=== PATIENT | female | born 1970 | race Caucasian/White ===

== ENCOUNTER 2023-04-23 08:11 | Outpatient (OUT) | payer BC, SELFPAY ==
[2023-04-23 08:49] LABS: Basophils Absolute Auto 0.1 10^3/uL (0.0-0.1); Basophils Percent Auto 0.7 % (0.2-2.0); Eosinophils Absolute Auto 0.1 10^3/uL (0.0-0.7); Eosinophils Percent Auto 0.9 % (0.9-7.0); Hematocrit 41.9 % (36.0-48.0); Hemoglobin 13.3 g/dL (12.0-16.0); Immature Granulocytes Abs Auto 0.01 10^3/uL (0.00-0.03); Immature Granulocytes Pct Auto 0.1 % (0.0-0.5); Lymphocytes Absolute Auto 2.2 10^3/uL (1.2-3.8); Mean Corpuscular HGB Conc 31.7 g/dL (29.9-35.2); Mean Corpuscular Hemoglobin 28.2 pg (26.7-34.0); Mean Corpuscular Volume 88.8 fL (81.0-99.0); Mean Platelet Volume 9.5 fL (9.5-13.5); Monocytes Absolute Auto 0.6 10^3/uL (0.3-0.8); Monocytes Percent Auto 8.3 % (1.7-12.0); Platelet Count 307 10^3/uL (150-450); Red Blood Count 4.72 10^6/uL (4.20-5.40); Red Cell Distribution Width 12.4 % (11.0-15.0); White Blood Count 6.9 10^3/uL (4.0-11.0)
[2023-04-23 09:22] LABS: Estimated Average Glucose 117 mg/dL; Glycohemoglobin A1C 5.7 % (4.5-6.2)
[2023-04-23 09:37] LABS: Alanine Aminotransferase 25 U/L (14-59); Albumin Globulin Ratio 0.8; Albumin Level 3.2 g/dL (3.4-5.0); Alkaline Phosphatase 98 U/L (46-116); Aspartate Amino Transferase 14 U/L (15-37); BUN Creatinine Ratio 12.7; Bilirubin Total 0.4 mg/dL (0.2-1.0); Calcium 8.9 mg/dL (8.5-10.1); Carbon Dioxide 28.1 mmol/L (21.0-32.0); Chloride 104 mmol/L (98-107); Chol HDL Ratio 1.9; Cholesterol 162 mg/dL (<=200); Estimated GFR (African America >60 (>=60); Estimated GFR (Non-African Ame >60 (>=60); Free T3 2.43 pg/mL (2.18-3.98); Globulin 4.1 g/dL; Glucose 109 mg/dL (74-106); HDL Cholesterol 85 mg/dL (40-60); Potassium 4.1 mmol/L (3.5-5.1); Sodium 140 mmol/L (136-145); Thyroid Stimulating Hormone 2.057 uIU/mL (0.358-3.740); Total Protein 7.3 g/dL (6.4-8.2); Triglycerides 62 mg/dL (<=150); VLDL CHOLESTEROL 12.4 mg/dL
[2023-04-24 11:09] LABS: Insulin 9.5 uIU/mL (2.6-24.9)
== END 2023-04-23 08:12 | disposition home or self-care (01) ==
PROVIDERS: PCP Nurse Practitioner Family; Visit Provider Nurse Practitioner Family
DX: Z00.00 Encounter for general adult medical examination without abnormal findings (principal)
CPT/HCPCS: 36415; 80053; 80061; 82306; 83036; 83525; 83540; 84436; 84443; 84481; 85025

== ENCOUNTER 2023-05-06 07:37 | Outpatient (OUT) | payer BC, SELFPAY ==
--- NOTE | 2023-05-06 08:12 | CA_ITS ---
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: : 1970 Requested By: [id number] Order Number: [id number] Reading MD: RYAN LEACH Interpretive Statements Predominant rhythm is sinus with average rate of 82 bpm Tachycardia - max rate of 126 bpm - longest episode of 26min 6sec with rates between 116-126 bpm Bradycardia - min rate of 49 bpm - longest episode of 42sec with rates between 49-57 bpm Ventricular ectopy - 68 PVC Patient triggered events: 3 - associated with symptoms of dizziness and palpitations - associated wth NSR Impression: Predominant rhythm is sinus with average rate of 82 bpm Fastest rate of 126 bpm and slowest rate of 49 bpm 68 PVC No atrial fibrillation No pauses or blocks Electronically Signed On 05-29-2023 7:25:01 EST by RYAN LEACH
== END 2023-05-06 07:38 | disposition home or self-care (01) ==
LOC: CARD 07:38
PROVIDERS: PCP Nurse Practitioner Family; Visit Provider Nurse Practitioner Family
DX: R00.2 Palpitations (principal)
CPT/HCPCS: 93246

== ENCOUNTER 2024-04-23 08:17 | Outpatient (OUT) | payer BC, SELFPAY ==
--- OUTSIDE RECORDS SUMMARY | 2024-04-23 08:22 | XMS_ITS | CCD ---
Author Organization [facility] CliniSyak Care Team Providers Care Operator Specialist Communications Name Role Phone CARL RODRÍGUEZ Unavailable Unavailable HOUSE, SR ISAURO P Unavailable Unavailable ANNE, CARL Khan Unavailable Unavailable HOUSE, SR ISAURO P Unavailable Unavailable HIGHLANDER, ANTONIA Ackerman Consulting Unavailable HOUSE, DR BOX Primary Care Unavailable HIGHLANDER, ANTONIA Ackerman Attending Unavailable HIGHLANDER, ANTONIA cAkerman Admitting Unavailable PRITCHARD, RACHEL Consulting Unavailable ZIEBER, DR BRIANA Grijalva Consulting Unavailable HOUSE, DR BOX Primary Care Unavailable HIGHLANDER, ANTONIA Ackerman Attending Unavailable HIGHLANDER, ANTONIA Ackerman Admitting Unavailable HIGHLANDER, ANTONIA Ackerman Consulting Unavailable HOUSE, DR BOX Consulting Unavailable HOUSE, DR BOX Primary Care Unavailable HOUSE, DR BOX Attending Unavailable HOUSE, DR BOX Admitting Unavailable HIGHLANDER, ANTONIA Ackerman Consulting Unavailable HOUSE, DR BOX Primary Care Unavailable HIGHLANDER, ANTONIA Ackerman Attending Unavailable HIGHLANDER, ANTONIA Ackerman Admitting Unavailable AGUBOSIM, COSMO Consulting Unavailable ADRIANNA, CAROLYN Consulting Unavailable ERIC, LATOSHA Consulting Unavailable HIGHLANDER, ANTONIA Ackerman Consulting Unavailable HOUSE, DR BOX Primary Care Unavailable HIGHLANDER, ANTONIA Ackerman Attending Unavailable HIGHLANDER, ANTONIA Ackerman Admitting Unavailable HIGHLANDER, ANTONIA Ackerman Consulting Unavailable HOUSE, DR BOX Referring Unavailable HOUSE, DR BOX Primary Care Unavailable HIGHLANDER, ANTONIA Ackerman Attending Unavailable HIGHLANDER, ANTONIA Ackerman Admitting Unavailable [place] Consulting Unavailable HOUSE, DR BOX Consulting Unavailable HOUSE, DR BOX Primary Care Unavailable HOUSE, DR BOX Attending Unavailable HOUSE, DR BOX Admitting Unavailable HOUSE, DR BOX Consulting Unavailable HOUSE, DR BOX Primary Care Unavailable HOUSE, DR BOX Attending Unavailable HOUSE, DR BOX Admitting Unavailable HOUSE, DR BOX Primary Care Unavailable JOSE DAVID CRAIG Attending Unavailable RAFAJOSE DAVID Admitting Unavailable KARASIK, DR ARIAS Consulting Unavailable HOUSE, DR BOX Primary Care Unavailable KARASITamiko, DR ARIAS Attending Unavailable KARASIK, DR ARISA Admitting Unavailable KARASIK, DR ARIAS Consulting Unavailable HOUSE, DR BOX Primary Care Unavailable KARASIK, DR ARIAS Attending Unavailable KARASIK, DR ARIAS Admitting Unavailable [place], DR Swenson Consulting Unavailable [place], DR BOX Primary Care Unavailable [place], DR BOX Attending Unavailable [place], DR BOX Admitting Unavailable [place], DR BOX Consulting Unavailable [place], DR Swenson Consulting Unavailable [place], DR BOX Primary Care Unavailable [facility], ANTONIA Ackerman Attending Unavailable [facility], ANTONIA Ackerman Admitting Unavailable [facility], ANTONIA Ackerman Consulting Unavailable [place], DR BXO Consulting Unavailable [place], DR BOX Primary Care Unavailable [place], DR BOX Attending Unavailable [place], DR BOX Admitting Unavailable Allergies Allergy Classification Reported Allergen(s) Allergy Type Date of Onset Reaction(s) Facility (1 source) Ciprofloxacin Drug Allergy [facility] [place] [facility] (1 source) NSAIDs Drug allergy (disorder) [facility] [place] [facility] Problems Active Problems Problem Classification Problem Date Documented Date Episodic/Chronic Diabetes mellitus without complication (1 source) Type 2 diabetes mellitus without complications; Translations: [TYPE 2 DM WITHOUT COMPLICATIONS] Onset: 02-07-2022 Chronic Other connective tissue disease (5 sources) Plantar fascial fibromatosis; Translations: [PLANTAR FASCIAL FIBROMATOSIS] Onset: 02-03-2022 Episodic Other female genital disorders (4 sources) Other specified noninflammatory disorders of vagina; Translations: [OTH SPEC NONINFLAMMATORY D/O VAGINA] Onset: 05-27-2022 Episodic Other lower respiratory disease (1 source) Solitary pulmonary nodule; Translations: [Solitary pulmonary nodule] Onset: 11-04-2017 Episodic Residual codes; unclassified (4 sources) Obstructive sleep apnea (adult) (pediatric); Translations: [OBSTRUCTIVE SLEEP APNEA] Onset: 04-15-2022 Chronic Residual codes; unclassified (4 sources) Other specified postprocedural states; Translations: [OTH SPECIFIED POSTPROCEDURAL STATES] Onset: 04-02-2022 Episodic Unclassified (1 source) CONTACT W/AND (SUSP) EXPOS COVID-19; Translations: [CONTACT W/AND (SUSP) EXPOS COVID-19] Onset: 02-04-2022 Past or Other Problems Problem Classification Problem Date Documented Date Episodic/Chronic Deficiency and other anemia (1 source) Anemia, unspecified; Translations: [ANEMIA UNSPECIFIED] Onset: 02-07-2022 Episodic Immunizations and screening for infectious disease (1 source) Encounter for screening for human papillomavirus (HPV); Translations: [ENC SCREENING HUMAN PAPILLOMAVIRUS] Onset: 09-15-2022 Episodic Other acquired deformities (1 source) Other specified acquired deformities of left lower leg; Translations: [OTH SPEC ACQ DEFORMITIES LT LOW LEG] Onset: 02-07-2022 Episodic Other aftercare (1 source) 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; 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] Onset: 02-07-2022 Episodic Other connective tissue disease (1 source) Pain in left foot; Translations: [PAIN IN LEFT FOOT] Onset: 02-07-2022 Episodic Other non-traumatic joint disorders (4 sources) Pain in right ankle and joints of right foot; Translations: [PAIN IN RIGHT ANKLE] Onset: 02-12-2022 Episodic Other non-traumatic joint disorders (5 sources) Pain in left ankle and joints of left foot; Translations: [PAIN IN LEFT ANKLE] Onset: 10-10-2021 Episodic Other screening for suspected conditions (not mental disorders or infectious disease) (5 sources) Encounter for screening for malignant neoplasm of cervix; Translations: [Encounter for screening mammogram for malignant neoplasm of breast] Onset: 02-25-2022 Episodic Residual codes; unclassified (1 source) Family history of malignant neoplasm of trachea, bronchus and lung; Translations: [FAM HX MALIG NEOPLSM TRACH BRON LNG] Onset: 02-27-2022 Episodic Residual codes; unclassified (1 source) Family history of malignant neoplasm, unspecified; Translations: [FAM HX MALIGNANT NEOPLASM UNS] Onset: 02-27-2022 Episodic Screening and history of mental health and substance abuse codes (1 source) Personal history of nicotine dependence; Translations: [PERSONAL HISTORY OF NICOTINE DEPEND] Onset: 02-07-2022 Episodic Results Test Name Value Interpretation Reference Range Facility XR CHEST 2 Von 06-13-2022 XR CHEST 2 V EXAMINATION: XR CHES T 2 V HISTORY: Cough COMPARISON: 07/04/2016 TECHNIQUE: PA and lateral FINDINGS: LUNGS: No significant pulmonary parenchymal abnormalities. VASCULATURE: No increased pulmonary vasculature. PLEURA: No pneumothorax, effusion, or pleural thickening. CARDIAC: No cardiomegaly or cardiac silhouette abnormality. MEDIASTINUM: No visible mass or adenopathy. BONES: No fracture or visible bone lesion. OTHER: Negative. IMPRESSION: No acute disease. Electronically authenticated by: EMBER SOTO Date: 2022-06-13 07:50 Normal [facility] HERPES SIMPLEX VIRUS (HSV) C ULTUREon 05-29-2022 HSV Culture/Type Comment Normal [facility] Comment on above: Result Comment: Nega tive No Herpes simplex virus isolated. Performed By: #### H SVCUL #### [facility] [place] [facility] [address] [place] [address] Dr. Adriana Encarnacion PAP ACOG PANEL 2: 30 to 65on 03-04-2022 . . Normal [facility] Comment on above: Result Comment: Perf ormed at: WB Performed By: #### [id number] #### [facility] [place] [facility] [address] [address] [address] Adriana Encarnacion Age Gdln ACOG Testing -65 [facility] Comment on above: Performed By: #### [id number] #### [facility] [place] [facility] [address] [place] [address] Dr. Adriana Encarnacion DIAGNOSIS: Comment [facility] Comment on above: Result Comment: NEGA TIVE FOR INTRAEPITHELIAL LESION OR MALIGNANCY. FUNGAL ORGANISMS MORPHOLOGICALLY CONSISTENT WITH GISSEL SPECIES ARE PRESENT. Performed at: WB Performed By: #### [id number] #### [facility] [place] [facility] [address] [place] [address] Dr. Adriana Encarnacion HPV Aptima QNSPAP [facility] Comment on above: Result Comment: Test not performed. Liquid based PAP vial contained insufficient specimen for molecular testing; likely a consequence of insufficient cellularity in original collection. This nucleic acid amplification test detects fourteen high-risk HPV types (16,18,31,33,35,39,45,51,52,56,58,59,66,68) without differentiation. Performed at: =G Performed By: #### [id number] #### [facility] [place] [facility] [address] [place] [address] Dr. Adriana Encarnacion Methodology: Comment [facility] Comment on above: Result Comment: This liquid based ThinPrep(R) pap test was screened with the use of an image guided system. Performed at: WB Performed By: #### [id number] #### [facility] [place] [facility] [address] [place] [address] Dr. Adriana Encarnacion Note: Comment [facility] Comment on above: Result Comment: The Pap smear is a screening test designed to aid in the detection of premalignant and malignant conditions of the uterine cervix. It is not a diagnostic procedure and should not be used as the sole means of detecting cervical cancer. Both false-positive and false-negative reports do occur. . Performed at: WB Performed By: #### [id number] #### [facility] [place] [facility] [address] [address] [address] Adriana Encarnacion Performed by: Comment Normal [facility] Comment on above: Result Comment: Adeline Francois Business Solutions Architect (ASCP) Performed at: WB Performed By: #### 4 [id number] #### [facility] [place] [facility] [address] [address] [address] Adriana Encarnacion Specimen adequacy: Comment Normal [facility] Comment on above: Result Comment: Sati sfactory for evaluation. Performed at: WB Performed By: #### 4 [id number] #### [facility] [place] [facility] [address] [address] [address] Adriana Encarnacion MG MAMM SCREEN 3D TRENT CADon 02-25-2022 MG MAMM SCREEN 3D TRENT CAD Patient: TAHIRA BELL Exam Date: 02/25/2022 : 1970 Gender:F Ordering : DR ISAURO MCCARTHY D.O. Admission #: [id number] Family : Order #: [id number] CLICK HERE TO VIEW EXAM RADIOLOGY REPORT PROCEDURE: MAMMOGRAM SCREENING 3D BILATERAL CAD COMPARISON: MG MAMM SCREEN TRENT W CAD, 04/05/2019. MG MAMM SCREEN TRENT W CAD, 05/05/2017. INDICATIONS: Screening mammography Calculator Name NCI Breast Cancer Risk Assessment Tool 5 Year Breast Cancer Risk 0.80% Lifetime Breast Cancer Risk 6.90% Personal Breast Cancer No Personal Ovarian Cancer No Treatments None Family Cancers Mother with lung cancer at age 48; Aunt-maternal with unknown cancer at age 65. LOCATION: [facility] [place] [facility] BREAST COMPOSITION: Scattered areas fibroglandular density. FINDINGS: DIAGNOSTIC CATEGORY 1--NEGATIVE. NO CHANGE FROM COMPARISON ASSESSMENT. Scattered benign-appearing lymph nodes are present. Scattered benign-appearing calcifications are present. RIGHT BREAST: No significant suspicious finding. LEFT BREAST: No significant suspicious finding. RECOMMENDATIONS: ROUTINE MAMMOGRAM AND CLINICAL EVALUATION IN 12 MONTHS. PLEASE NOTE: A NORMAL MAMMOGRAM DOES NOT EXCLUDE THE POSSIBILITY OF BREAST CANCER. A CLINICALLY SUSPICIOUS PALPABLE LUMP SHOULD BE BIOPSIED. Dictated by: Ember Soto MD on 02/25/2022 at 11:22 Approved by: Ember Soto MD on 02/25/2022 at 11:24 Normal [facility] [place] [facility] POINT OF CARE GLUCOSEon 01-14 Glucose [Mass/Vol] 94 mg/dL Normal 74-106 [facility] Comment on above: Performed By: #### P OCGLUC ####[facility] [place] [facility] [address] [place], [place] [address]CiDr. Adriana Encarnacion Glucose [Mass/Vol] 97 mg/dL Normal 74-106 [facility] Comment on above: Performed By: #### P OCGLUC #### [facility] [place] [facility] [address] [place], [place] [address] Dr. Adriana Encarnacion Covid-19 PCR (CVDTB)on 01-13 SARS-CoV-2 (COVID-19) RNA JOVAN+probe Ql (Unsp spec) Not detected Normal NOT DETECTED [facility] [place] [facility] Comment on above: Result Comment: This test is not yet approved or cleared by the [place] FDA. When there are no FDA-approved or cleared tests available, and other criteria are met, FDA can make tests available under an emergency access mechanism called an Emergency Use Authorization (EUA). The EUA for this test is supported by the [place] of Health and Human Service's (HHS's) declaration that circumstances exist to justify the emergency use of in vitro diagnostics for the detection and/or diagnosis of the virus that causes COVID-19. This EUA will remain in effect (meaning this test can be used) for the duration of the COVID-19 declaration justifying emergency of IVDs, unless it is terminated or revoked by FDA (after which the test may no longer be used). When diagnostic testing is negative, the possibility of a false negative should be considered in the context of a patient's recent exposures and the presence of clinical signs and symptoms consistent with SARS-CoV-2. Performed By: #### C VDTBH ####[facility] [place] [facility] [address] [place], [place] [address]FzDr. Adriana Encarnacion CBC AUTO DIFFon 01-23-2022 BASO # 0.0 103/ul Normal 0.0-0.1 [facility] [place] [facility] Comment on above: Performed By: #### C BC ####[facility] [place] [facility] [address] [place], [place] [address]Dr. Adriana Encarnacion Basophils/100 WBC (Bld) 0.5 % Normal 0.2-2.0 [facility] [place] [facility] Comment on above: Performed By: #### C BC ####[facility] [place] [facility] [address] [place], [place] [address]Dr. Adriana Encarnacion EO # 0.1 103/ul Normal 0.0-0.7 [facility] [place] [facility] Comment on above: Performed By: #### C BC ####[facility] [place] [facility] [address] [place], [place] [address]Dr. Adriana Encarnacion Eosinophils/100 WBC (Bld) 1.4 % Normal 0.9-7.0 [facility] [place] [facility] Comment on above: Performed By: #### C BC ####[facility] [place] [facility] [address] [place], [place] [address]Dr. Adriana Encarnacion Erythrocyte distribution width (RBC) [Ratio] 13.2 % Normal 11.0-15.0 [facility] [place] [facility] Comment on above: Performed By: #### C BC ####[facility] [place] [facility] [address] [place], [place] [address]Dr. Adriana Encarnacion Hematocrit (Bld) [Volume fraction] 41.2 % Normal 36.0-48.0 [facility] [place] [facility] Comment on above: Performed By: #### C BC ####[facility] [place] [facility] [address] [place], [place] [address]Dr. Zulemaromain Encarnacion Hemoglobin (Bld) [Mass/Vol] 12.7 g/dL Normal 12.0-16.0 [facility] [place] [facility] Comment on above: Performed By: #### C BC ####[facility] [place] [facility] [address] [place], [place] [address]Dr. Adriana Encarnacion IG # 0.02 10e3/ul Normal 0.00-0.03 [facility] [place] [facility] Comment on above: Performed By: #### C BC ####[facility] [place] [facility] [address] [id number]. Adriana Encarnacion IG % 0.3 % Normal 0.0-0.5 [facility] [place] [facility] Comment on above: Performed By: #### C BC ####[facility] [place] [facility] [address] [address]Dr. Adriana Encarnacion LYMPH # 1.9 103/ul Normal 1.2-3.8 [facility] [place] [facility] Comment on above: Performed By: #### C BC ####[facility] [place] [facility] [address] [address]Dr. Adriana Encarnacion Lymphocytes/100 WBC (Bld) 28.4 % Normal 20.5-60.0 [facility] [place] [facility] Comment on above: Performed By: #### C BC ####[facility] [place] [facility] [address] [address]Dr. Adriana Encarnacion MANUAL DIFF REQ NO Normal [facility] [place] Comment on above: Performed By: #### C BC ####[facility] [place] [facility] [address] [address]Dr. Adriana Shashank MCH (RBC) [Entitic mass] 27.9 pg Normal 26.7-34.0 [facility] [place] [facility] Comment on above: Performed By: #### C BC ####[facility] [place] [facility] [address] [place], [place] [address]Dr. Adriana Shashank MCHC (RBC) [Mass/Vol] 30.8 g/dL Normal 29.9-35.2 [facility] [place] [facility] Comment on above: Performed By: #### C BC ####[facility] [place] [facility] [address] [address]Dr. Adriana Encarnacion MCV (RBC) [Entitic vol] 90.4 fL Normal 81.0-99.0 [facility] [place] [facility] Comment on above: Performed By: #### C BC ####[facility] [place] [facility] [address] [place], [place] [address]Dr. Adriana Encarnacion MONO # 0.6 103/ul Normal 0.3-0.8 [facility] [place] [facility] Comment on above: Performed By: #### C BC ####[facility] [place] [facility] [address] [place], [place] [address]Dr. Adriana Encarnacion Monocytes/100 WBC (Bld) 8.6 % Normal 1.7-12.0 [facility] [place] [facility] Comment on above: Performed By: #### C BC ####[facility] [place] [facility] [address] [address]Dr. Adriana Encarnacion NEUT # 4.0 103/ul Normal 1.4-6.5 [facility] [place] [facility] Comment on above: Performed By: #### C BC ####[facility] [place] [facility] [address] [address]Dr. Adriana Encarnacion Neutrophils/100 WBC (Bld) 60.8 % Normal 43.0-75.0 [facility] [place] [facility] Comment on above: Performed By: #### C BC ####[facility] [place] [facility] [address] [address]Dr. Adriana Encarnacion Platelet mean volume (Bld) [Entitic vol] 9.5 fL Normal 9.5-13.5 [facility] [place] [facility] Comment on above: Performed By: #### C BC ####[facility] [place] [facility] [address] [address]Dr. Adriana Encarnacion PLT 307 103/ul Normal 150-450 [facility] [place] [facility] Comment on above: Performed By: #### C BC ####[facility] [place] [facility] [address] [place], [place] [address]Dr. Adriana Encarnacion RBC 4.56 106/ul Normal 4.20-5.40 [facility] [place] [facility] Comment on above: Performed By: #### C BC ####[facility] [place] [facility] [address] [address]Dr. Adriana Encarnacion WBC 6.6 103/ul Normal 4.0-11.0 [facility] [place] [facility] Comment on above: Performed By: #### C BC ####[facility] [place] [facility] [address] [address]Dr. Zulemaromain Encarnacion PROF CHEM 8 (BAS METB)on Anion gap [Moles/Vol] 9.8 mmol/L Normal [facility] [place] [facility] Comment on above: Performed By: #### B MP ####[facility] [place] [facility] [address] [place], [place] [address]Dr. Adriana Encarnacion Calcium [Mass/Vol] 8.9 mg/dL Normal 8.5-10.1 [facility] Comment on above: Performed By: #### B MP ####[facility] [place] [facility] [address] [address]Dr. Adriana Encarnacion Chloride [Moles/Vol] 103 mmol/L Normal 98-107 [facility] Comment on above: Performed By: #### B MP ####[facility] [place] [facility] [address] [place], [place] [address]Dr. Adriana Encarnacion CO2 [Moles/Vol] 28.2 mmol/L Normal 21.0-32.0 [facility] Comment on above: Performed By: #### B MP ####[facility] [place] [facility] [address] [place], [place] [address]Dr. Adriana Encarnacion Creatinine [Mass/Vol] 0.75 mg/dL Normal 0.55-1.02 [facility] Comment on above: Performed By: #### B MP ####[facility] [place] [facility] [address] [place], [place] [address]Dr. Adriana Encarnacion EGFR-AF CONGOLESE >60 Normal >=60 [facility] Comment on above: Performed By: #### B MP ####[facility] [place] [facility] [address] [place], [place] [address]Dr. Adriana Encarnacion EGFR-NON AF [place]ESE >60 Normal >=60 [facility] [place] [facility] Comment on above: Performed By: #### B MP ####[facility] [place] [facility] [address] [place], [place] [address]Dr. Adriana Encarnacion Glucose [Mass/Vol] 119 mg/dL Critically high 74-106 [facility] Comment on above: Performed By: #### B MP ####[facility] [place] [facility] [address] [place], [place] [address]Dr. Zulemaromain Encarnacion Potassium [Moles/Vol] 4.0 mmol/L Normal 3.5-5.1 [facility] [place] [facility] Comment on above: Performed By: #### B MP ####[facility] [place] [facility] [address] [place], [place] [address]Dr. Adriana Encarnacion Sodium [Moles/Vol] 137 mmol/L Normal 136-145 [facility] Comment on above: Performed By: #### B MP ####[facility] [place] [facility] [address] [place], [place] [address]Dr. Adriana Shashank Urea nitrogen [Mass/Vol] 9.0 mg/dL Normal 7.0-18.0 [facility] Comment on above: Performed By: #### B MP ####[facility] [place] [facility] [address] [place], [place] [address]Dr. Adriana Encarnacion Urea nitrogen/Creatinin e [Mass ratio] 12.0 mg/mg Normal [facility] Comment on above: Performed By: #### B MP ####[facility] [place] [facility] [address] [place], [place] [address]Dr. Zulemaromain Encarnacion CBC AUTO DIFFon 12-21-2021 BASO # 0.0 103/ul Normal 0.0-0.1 [facility] Comment on above: Performed By: #### C BC ####[facility] [place] [facility] [address] [place], [place] [address]Dr. Adriana Encarnacion Basophils/100 WBC (Bld) 0.4 % Normal 0.2-2.0 [facility] Comment on above: Performed By: #### C BC ####[facility] [place] [facility] [address] [place], [place] [address]Dr. Adriana Encarnacion EO # 0.1 103/ul Normal 0.0-0.7 [facility] Comment on above: Performed By: #### C BC ####[facility] [place] [facility] [address] [place], [place] [address]DrTesfaye Encarnacion Eosinophils/100 WBC (Bld) 0.8 % Critically low 0.9-7.0 [facility] [place] [facility] Comment on above: Performed By: #### C BC ####[facility] [place] [facility] [address] [place], [place] [address]DrTesfaye Encarnacion Erythrocyte distribution width (RBC) [Ratio] 13.1 % Normal 11.0-15.0 [facility] Comment on above: Performed By: #### C BC ####[facility] [place] [facility] [address] [place], [place] [address]Dr. Adriana Encarnacion Hematocrit (Bld) [Volume fraction] 41.5 % Normal 36.0-48.0 [facility] [place] [facility] Comment on above: Performed By: #### C BC ####[facility] [place] [facility] [address] [address]Dr. Adriana Encarnacion Hemoglobin (Bld) [Mass/Vol] 13.0 g/dL Normal 12.0-16.0 [facility] [place] [facility] Comment on above: Performed By: #### C BC ####[facility] [place] [facility] [address] [address]Dr. Adriana Encarnacion IG # 0.03 10e3/ul Normal 0.00-0.03 [facility] [place] [facility] Comment on above: Performed By: #### C BC ####[facility] [place] [facility] [address] [address]Dr. Adriana Encarnacion IG % 0.4 % Normal 0.0-0.5 [facility] [place] [facility] Comment on above: Performed By: #### C BC ####[facility] [place] [facility] [address] [place], [place] [address]Dr. Adriana Encarnacion LYMPH # 2.0 103/ul Normal 1.2-3.8 [facility] [place] [facility] Comment on above: Performed By: #### C BC ####[facility] [place] [facility] [address] [place], [place] [address]Dr. Adriana Encarnacion Lymphocytes/100 WBC (Bld) 25.0 % Normal 20.5-60.0 [facility] [place] [facility] Comment on above: Performed By: #### C BC ####[facility] [place] [facility] [address] [place], [place] [address]Dr. Adriana Encarnacion MANUAL DIFF REQ NO Normal [facility] Comment on above: Performed By: #### C BC ####[facility] [place] [facility] [address] [place], [place] [address]Dr. Adriana Encarnacion MCH (RBC) [Entitic mass] 28.1 pg Normal 26.7-34.0 [facility] [place] [facility] Comment on above: Performed By: #### C BC ####[facility] [place] [facility] [address] [place], [place] [address]Dr. Adriana Encarnacion MCHC (RBC) [Mass/Vol] 31.3 g/dL Normal 29.9-35.2 [facility] [place] [facility] Comment on above: Performed By: #### C BC ####[facility] [place] [facility] [address] [place], [place] [address]Dr. Adriana Encarnacion MCV (RBC) [Entitic vol] 89.8 fL Normal 81.0-99.0 [facility] [place] [facility] Comment on above: Performed By: #### C BC ####[facility] [place] [facility] [address] [place], [place] [address]Dr. Zulemaromain Shashank MONO # 0.7 103/ul Normal 0.3-0.8 [facility] [place] [facility] Comment on above: Performed By: #### C BC ####[facility] [place] [facility] [address] [place], [place] [address]Dr. Adriana Encarnacion Monocytes/100 WBC (Bld) 8.7 % Normal 1.7-12.0 [facility] [place] [facility] Comment on above: Performed By: #### C BC ####[facility] [place] [facility] [address] [place], [place] [address]Dr. Adriana Encarnacion NEUT # 5.1 103/ul Normal 1.4-6.5 [facility] [place] [facility] Comment on above: Performed By: #### C BC ####[facility] [place] [facility] [address] [place], [place] [address]Dr. Adriana Encarnacion Neutrophils/100 WBC (Bld) 64.7 % Normal 43.0-75.0 [facility] [place] [facility] Comment on above: Performed By: #### C BC ####[facility] [place] [facility] [address] [place], [place] [address]Dr. Adriana Encarnacion Platelet mean volume (Bld) [Entitic vol] 9.8 fL Normal 9.5-13.5 [facility] [place] [facility] Comment on above: Performed By: #### C BC ####[facility] [place] [facility] [address] [place], [place] [address]Dr. Adriana Encarnacion PLT 312 103/ul Normal 150-450 [facility] [place] [facility] Comment on above: Performed By: #### C BC ####[facility] [place] [facility] [address] [place], [place] [address]Dr. Adriana Encarnacion RBC 4.62 106/ul Normal 4.20-5.40 [facility] [place] [facility] Comment on above: Performed By: #### C BC ####[facility] [place] [facility] [address] [place] [id number]. Adriana Encarnacion WBC 7.9 103/ul Normal 4.0-11.0 [facility] Comment on above: Performed By: #### C BC ####[facility] [place] [facility] [address] [place] [id number]. Adriana Encarnacion LIPID PROFILEon 12-21-2021 CHOL-HDL RATIO NORM SEE BELOW Normal [facility] [place] [facility] Comment on above: Result Comment: 3.3 - 4.4 LOW RISK 4.4 - 7.1 AVERAGE RISK 7.1 - 11.0 MODERATE RISK >11.0 HIGH RISK Performed By: #### T SH, CMP, T4, LIPID ####[facility] [place] [facility] [address] [place] [id number]. Adriana Encarnacion Cholesterol [Mass/Vol] 163 mg/dL Normal <=200 [facility] [place] [facility] Comment on above: Performed By: #### T SH, CMP, T4, LIPID ####[facility] [place] [facility] [address] [place] [id number]. Adriana Encarnacion Cholesterol in HDL [Mass/Vol] 77 mg/dL Critically high 40-60 [facility] Comment on above: Performed By: #### T SH, CMP, T4, LIPID ####[facility] [place] [facility] [address] [place] [id number]. Adriana Encarnacion Cholesterol in LDL [Mass/Vol] 73.6 mg/dL Normal [facility] [place] [facility] Comment on above: Performed By: #### T SH, CMP, T4, LIPID ####[facility] [place] [facility] [address] [place], [place] [address]Cd. Adriana Encarnacion Cholesterol.total/ Cholesterol in HDL [Mass ratio] 2.1 {ratio} Normal [facility] [place] [facility] Comment on above: Performed By: #### T SH, CMP, T4, LIPID ####[facility] [place] [facility] [address] [place] [id number]. Adriana Encarnacion HDL NORMAL > or = 60 mg/dl - LO W CARDIOVASCULAR RISK <40 mg/dl - HIGH CARDIOVASCULAR RISK Normal [facility] Comment on above: Performed By: #### T SH, CMP, T4, LIPID ####[facility] [place] [facility] [address] [place] [id number] Encarnacion LDL CALC NORMAL SEE BELOW Normal [facility] Comment on above: Result Comment: <100 mg/dl OPTIMAL 100 - 129 mg/dl NEAR OR ABOVE OPTIMAL 130 - 159 mg/dl BORDERLINE HIGH 160 - 189 mg/dl HIGH >190 mg/dl VERY HIGH Performed By: #### T SH, CMP, T4, LIPID ####[facility] [place] [facility] [address] [place], [place] [address]ZkTesfaye Encarnacion Triglyceride [Mass/Vol] 62 mg/dL Normal <=150 [facility] Comment on above: Performed By: #### T SH, CMP, T4, LIPID ####[facility] [place] [facility] [address] [place] [address]DrTesfaye Encarnacion VLDL CALC 12.4 mg/dL Normal [facility] Comment on above: Performed By: #### T SH, CMP, T4, LIPID ####[facility] [place] [facility] [address] [place] [address]Dr. Adriana Encarnacion PROF 14(COMP METB)on 022 Albumin [Mass/Vol] 3.3 g/dL Critically low 3.4-5.0 [facility] [place] [facility] Comment on above: Performed By: #### T SH, CMP, T4, LIPID #### [facility] [place] [facility] [address] [address] [address] Adriana Encarnacion Albumin/Globulin [Mass ratio] 0.8 {ratio} Normal [facility] Comment on above: Performed By: #### T SH, CMP, T4, LIPID #### [facility] [place] [facility] [address] [address] [address] Adriana Encarnacion ALP [Catalytic activity/Vol] 91 U/L Normal 46-116 [facility] Comment on above: Performed By: #### T SH, CMP, T4, LIPID #### [facility] [place] [facility] [address] [address] [address] Adriana Encarnacion ALT [Catalytic activity/Vol] 31 U/L Normal 14-59 [facility] Comment on above: Performed By: #### T SH, CMP, T4, LIPID #### [facility] [place] [facility] [address] [place] [address] Dr. Adriana Encarnacion Anion gap [Moles/Vol] 12.3 mmol/L Normal [facility] Comment on above: Performed By: #### T SH, CMP, T4, LIPID #### [facility] [place] [facility] [address] [place] [address] Dr. Adriana Encarnacion AST [Catalytic activity/Vol] 18 U/L Normal 15-37 [facility] Comment on above: Performed By: #### T SH, CMP, T4, LIPID #### [facility] [place] [facility] [address] [place] [address] Dr. Adriana Encarnacion Bilirubin [Mass/Vol] 0.4 mg/dL Normal 0.2-1.0 [facility] Comment on above: Performed By: #### T SH, CMP, T4, LIPID #### [facility] [place] [facility] [address] [place] [address] Dr. Adriana Encarnacion Calcium [Mass/Vol] 8.9 mg/dL Normal 8.5-10.1 [facility] Comment on above: Performed By: #### T SH, CMP, T4, LIPID #### [facility] [place] [facility] [address] [place] [address] Dr. Adriana Encarnacion Chloride [Moles/Vol] 104 mmol/L Normal 98-107 [facility] Comment on above: Performed By: #### T SH, CMP, T4, LIPID #### [facility] [place] [facility] [address] [place] [address] Dr. Adriana Encarnacion CO2 [Moles/Vol] 26.1 mmol/L Normal 21.0-32.0 [facility] Comment on above: Performed By: #### T SH, CMP, T4, LIPID #### [facility] [place] [facility] [address] [place] [address] Dr. Adriana Encarnacion Creatinine [Mass/Vol] 0.78 mg/dL Normal 0.55-1.02 [facility] Comment on above: Performed By: #### T SH, CMP, T4, LIPID #### [facility] [place] [facility] [address] [address] [address] Adriana Encarnacion EGFR-AF CONGOLESE >60 Normal >=60 [facility] Comment on above: Performed By: #### T SH, CMP, T4, LIPID #### [facility] [place] [facility] [address] [address] [address] Adriana Encarnacion EGFR-NON AF CONGOLESE >60 Normal >=60 [facility] Comment on above: Performed By: #### T SH, CMP, T4, LIPID #### [facility] [place] [facility] [address] [address] [address] Adriana Encarnacion Globulin (S) [Mass/Vol] 4.1 g/dL Normal [facility] Comment on above: Performed By: #### T SH, CMP, T4, LIPID #### [facility] [place] [facility] [address] [address] [address] Adriana Encarnacion Glucose [Mass/Vol] 121 mg/dL Critically high 74-106 [facility] Comment on above: Performed By: #### T SH, CMP, T4, LIPID #### [facility] [place] [facility] [address] [address] [address] Adriana Encarnacion Potassium [Moles/Vol] 4.4 mmol/L Normal 3.5-5.1 [facility] Comment on above: Performed By: #### T SH, CMP, T4, LIPID #### [facility] [place] [facility] [address] [address] [address] Adriana Encarnacion Protein [Mass/Vol] 7.4 g/dL Normal 6.4-8.2 [facility] Comment on above: Performed By: #### T SH, CMP, T4, LIPID #### [facility] [place] [facility] [address] [address] [address] Adriana Encarnacion Sodium [Moles/Vol] 138 mmol/L Normal 136-145 [facility] Comment on above: Performed By: #### T SH, CMP, T4, LIPID #### [facility] [place] [facility] [address] [address] [address] Adriana Encarnacion Urea nitrogen [Mass/Vol] 12.0 mg/dL Normal 7.0-18.0 [facility] Comment on above: Performed By: #### T SH, CMP, T4, LIPID #### [facility] [place] [facility] [address] [place], [place] [address] Dr. Adriana Encarnacion Urea nitrogen/Creatinin e [Mass ratio] 15.4 mg/mg Normal [facility] Comment on above: Performed By: #### T SH, CMP, T4, LIPID #### [facility] [place] [facility] [address] [place], [place] [address] Dr. Adriana Encarnacion T4on 12-21-2021 T4 [Mass/Vol] 9.40 ug/dL Normal 4.80-13.90 [facility] Comment on above: Performed By: #### T SH, CMP, T4, LIPID #### [facility] [place] [facility] [address] [place], [place] [address] Dr. Adriana Encarnacion TSHon 12-21-2021 TSH 1.561 uIU/mL Normal 0.358-3.740 [facility] Comment on above: Performed By: #### T SH, CMP, T4, LIPID ####[facility] [place] [facility] [address] [place], [place] [address]Dr. Adriana Encarnacion MRI ANKLE LT WO CONon 2021 MRI ANKLE LT WO CON EXAM: MRI ANKLE LT WO CON HISTORY: Plantar fascial fibromatosis. Left foot plantar fasciitis. COMPARISON: X-rays 10/10/2021. TECHNIQUE: Multiplanar, multisequence MRI of the left ankle was performed without contrast. This included axial T1, axial T2, sagittal PD fat-sat, sagittal T1, sagittal T2, oblique coronal PD fat-sat, coronal T2 and coronal T1 imaging. FINDINGS: JOINTS: No talar dome osteochondral lesion is seen. Mild dorsal spur at the talonavicular joint. The subtalar and calcaneocuboid joints appear preserved. Mild marginal spur and subchondral cystic changes noted at the second TMT joint. The tarsometatarsal alignment appears preserved on this non-weightbearing study. The interosseous component of the Lisfranc ligament is identified and is intact. BONES: Type II os navicularis is seen. No edema at the synchondrosis. No fracture. Mild bone marrow edema at the origin of the plantar fascia. LIGAMENTS: The anterior talofibular ligament is intact. The calcaneofibular and posterior talofibular ligament appears intact. The deep and superficial fibers of the deltoid ligament are intact. Superior medial band of the spring ligament is identified and is intact. The anterior and posterior tibiofibular ligaments are intact. TENDONS: The flexor, extensor and peroneal tendons are intact. No long-segment tenosynovitis is seen. Achilles tendon is intact. SINUS TARSI: Normal fat signal is seen sinus tarsi. PLANTAR FASCIA: Large plantar calcaneal spur is noted. There is prominent thickening of the middle cord of the plantar fascia near the origin with some superficial irregularities suggesting a low-grade partial tear. Adjacent soft tissue edema is noted. No signs of Casanova's neuropathy. TARSAL TUNNEL: No mass lesion in tarsal tunnel is identified. SOFT TISSUES: There is low signal change within the subcutaneous fat along the plantar hindfoot near the origin of the plantar fascia measuring 2.1 x 2.5 cm suggesting granulation tissue/scar. IMPRESSION: 1. Acute on chronic plantar fasciitis. There is mild surface irregularity of the proximal middle cord of the plantar fascia near the origins suggesting a low-grade partial tear. 2. There is a low signal T1/T2 signal focus in the subcutaneous fat plantar to the posterior process of the calcaneus measuring up to 2.5 cm which may be palpable. This suggests an area of granulation tissue/scar. Continued clinical follow up. 3. No fracture. No tendon tear. No acute ligamentous injury. 4. 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 5. 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 Electronically authenticated by: RACHEL PRITCHARD Date: 2021-10-22 09:08 Normal [facility] CT CHEST DIAGNOSTIC LOW DOSE on 11-17-2017 CT CHEST DIAGNOSTIC LOW DOSE ADDENDUM #[address] WITHOUT CONTRAST (LOW DOSE PROTOCOL)CLINICAL HISTORY: Incidental lung noduleCOMPARISON: Compared to 03/31/2017 and 07/03/2016.TECHNIQUE: Multiple contiguous axial images through the chest were obtained utilizing low dose protocol. Sagittal and Coronal Reformations, as well as MIP images were also provided.CTDIvol: 2.47 mGyFOV: 380 mmFINDINGS:No focal consolidation, pleural effusion or pneumothorax. Stable 5 mm noncalcified pulmonary nodule right lower lobe since 07/03/2016. No new pulmonary nodules seen. No mediastinal or hilar lymphadenopathy. Normal cardiac size. Nonaneurysmal thoracic aorta. Postoperative changes of the stomach. Degenerative changes thoracic spine.Stable 5 mm noncalcified pulmonary nodule since 07/03/2016.Pulmonary nodule management:If the patient is LOW RISK (no significant smoking history, no history ofmalignancy, and a normal immune system) nodules:>4-[address] chest follow-up in 12 months. If there is nochange at that time, no additional follow up is necessary.If the patient is HIGH RISK, follow-up noncontrast>4-[address] chest follow-up in 6-12 months then at 18-24 monthsif no change.Final report electronically signed by Ibis John on 11/17/2017 4:08 PM ORIGINAL REPORT CHEST CT WITHOUT CONTRAST (LOW DOSE PROTOCOL)CLINICAL HISTORY: Incidental lung noduleCOMPARISON: Compared to 03/31/2017 and 07/03/2016.TECHNIQUE: Multiple contiguous axial images through the chest were obtained utilizing low dose protocol. Sagittal and Coronal Reformations, as well as MIP images were also provided.CTDIvol: 2.47 mGyFOV: 380 mmFINDINGS:No focal consolidation, pleural effusion or pneumothorax. Stable 5 mm noncalcified pulmonary nodule right lower lobe since 07/03/2016. No new pulmonary nodules seen. No mediastinal or hilar lymphadenopathy. Normal cardiac size. Nonaneurysmal thoracic aorta. Postoperative changes of the stomach. Degenerative changes thoracic spine.Stable 5 mm noncalcified pulmonary nodule since 07/03/2016.Pulmonary nodule management:If the patient is LOW RISK (no significant smoking history, no history ofmalignancy, and a normal immune system) nodules:>4-[address] chest follow-up in 12 months. If there is nochange at that time, no additional follow up is necessary.If the patient is HIGH RISK, follow-up noncontrast>4-[address] chest follow-up in 6-12 months then at 18-24 monthsif no change.Final report electronically signed by Ibis John on 11/04/2017 3:58 PMIMPRESSION: IMPRESSION:Interpreted by:CARITO Richardsonigned by:Ibis John MD11/17/17Edited Result - FINAL Normal [facility] PULMONARY FUNCTIONon 017 PULMONARY FUNCTION [address] [id number] PULMONARY FUNCTIONPATIENT NAME: TAHIRA BELL : 1970MED REC NO: [id number] ROOM:ACCOUNT NO: [id number] ADMIT DATE: 04/29/2017PROVIDER: Dl ChaudhariiDATE OF PROCEDURE: 04/29/2017Flow volume loop shows a small airway obstructive defect. FEV1 is 90%predicted post-bronchodilator. FVC is 88% predicted post-bronchodilator. The bronchodilator change was 7% and 4% in FEV1 and FVC respectively. FEV1/FVC ratio is 82. Lung volumes by body box, RV 170% of predicted, CCY027% of predicted. Diffusion capacity 99% predicted. FEF 25-75 is 76%predicted with a 27% bronchodilator change.FINAL IMPRESSION: The study shows mild small airway dysfunction. Clinicalcorrelation advised.DL ROCHAASTHID: 05/03/2017 21:49:54 /[id number]#: [id number] Doc#: [id number] Normal [facility] Encounters Encounter Date Encounter Type Care Provider Facility Start: 06-12-2022 End: 06-13-[address] ISAURO MCCARTHY Facility:[facility] Start: 05-27-2022 End: 05-27-[address] HUGO HERNANDEZ Facility:[facility] Start: 04-15-2022 End: 04-16-[address] ISAURO MCCARTHY Facility:[facility] Start: 04-02-2022 End: 04-26-[address] ISAURO MCCARTHY Facility:[facility] Start: 02-25-2022 End: 02-26-[address] Ember Stoo Facility:[facility] Start: 02-12-2022 End: 02-13-[address] Ember Soto Facility:[facility] Start: 02-04-2022 Encounter for prepro cedural laboratory examination ANTONIA SONG [facility] Start: 02-03-2022 End: 02-03-2022 ambulatory ANTONIA SONG Facility:[facility] Start: 01-30-2022 End: 01-31-2022 ambulatory ANTONIA SONG Facility:[facility] Start: 01-30-2022 End: 01-31-2022 Encounter for preprocedural laboratory examination ANTONIA SONG Facility:[facility] Start: 01-24-2022 Encounter for prepro cedural cardiovascular examination ANTONIA Ackerman DUNCAN [facility] Start: 01-23-2022 End: 01-24-2022 ambulatory ANTONIA Ackerman JOSEHERVE Facility:[facility] Start: 12-25-2021 Encounter for genera l adult medical examination without abnormal findings DR ISAURO MCCARTHY [facility] Start: 12-21-2021 End: 12-22-[address] ISAURO MCCARTHY Facility:[facility] Start: 12-21-2021 End: 12-22-2021 Encounter for general adult medical examination without abnormal findings DR ISAURO MCCARTHY Facility:[facility] Start: 10-21-2021 End: 10-22-2021 ambulatory ANTONIA Ackerman DUNCAN Facility:[facility] Start: 10-10-2021 End: 10-11-[address] BRIANA MCKEON Facility:[facility] Start: 11-04-2017 End: 11-07-2017 Ambulatory [facility]ke[facility] Start: 04-29-2017 End: 04-30-2017 Ambulatory CARL RODRÍGUEZ [facility] Procedures Date Procedure Procedure Detail Performing Clinician Start: 11-04-2017 Ct thorax w/o contra st material CARL RODRÍGUEZ Start: 04-29-2017 NEBULIZER [place] INTERMITTENT CARL RODRÍGUEZ Payers Date Payer Category Payer Unknown [id number] 1970 Unknown [id number] 2.16.84 [id number] 1970 Unknown [id number] 2.16.84 [id number] 1970 Unknown [id number] 2.16.84 0.1.352379.3.579.2.593 1970 Unknown [id number] 2.16.84 0.1.640795.3.579.2.593 1970 Unknown [id number] 2.16.84 0.1.699107.3.579.2.593 1970 Unknown [id number] 2.16.84 0.1.767624.3.579.2.593 1970 Unknown [id number] 2.16.84 0.1.414515.3.579.2.593 1970 Unknown [id number] 2.16.84 0.1.923027.3.579.2.593 1970 Unknown [id number] 2.16.84 0.1.817169.3.579.2.593 1970 Unknown [id number] 2.16.84 0.1.613642.3.579.2.593 1970 Unknown [id number] 2.16.84 0.1.065404.3.579.2.593 1970 Unknown [id number] 2.16.84 0.1.095055.3.579.2.593 1970 Unknown [id number] 2.16.84 [id number] 1970 Unknown [id number] 2.16.84 [id number] 1959 Unknown [id number] Clinical Note 02-12-2022 Note Date & Type Note Facility 02-12-2022 Note PROCEDURE: XR ANKLE LT MIN 3 V COMPARISON: 10/10/2021 HISTORY: Pain FINDINGS: BONES:No acute fracture or dislocation. Moderate enthesopathic spurring plantar calcaneus SOFT TISSUES:Focal soft tissue density measuring 3.3 x 1.3 cm posterior distal lower leg/calf with overlying soft tissue swelling EFFUSION:None visible. OTHER: Negative. IMPRESSION: Soft tissue density and soft tissue swelling distal calf, unknown etiology Electronically authenticated by: EMBER SOTO Date: 2022-02-12 10:41 [facility] Clinical Note 10-10-2021 Note Date & Type Note Facility 10-10-2021 Note PROCEDURE: XR ANKLE LT MIN 3 V, XR FOOT LT MIN 3 VIEWS HISTORY: Pain of left ankle joint , chronic left ankle and heel pain COMPARISON: None. FINDINGS: BONES: Calcaneal plantar spur. No fracture, acute abnormality, or significant arthropathy. SOFT TISSUES:No visible soft tissue swelling. EFFUSION:None visible. OTHER: Negative. IMPRESSION: 1. Calcaneal plantar spur of uncertain clinical significance. 2. No acute or specific findings to account for patient's symptoms. Electronically authenticated by: BRIANA MCKEON Date: 2021-10-10 09:13 [facility] [place] [facility] Clinical Note 10-10-2021 Note Date & Type Note Facility 10-10-2021 Note PROCEDURE: XR ANKLE LT MIN 3 V, XR FOOT LT MIN 3 VIEWS HISTORY: Pain of left ankle joint , chronic left ankle and heel pain COMPARISON: None. FINDINGS: BONES: Calcaneal plantar spur. No fracture, acute abnormality, or significant arthropathy. SOFT TISSUES:No visible soft tissue swelling. EFFUSION:None visible. OTHER: Negative. IMPRESSION: 1. Calcaneal plantar spur of uncertain clinical significance. 2. No acute or specific findings to account for patient's symptoms. Electronically authenticated by: BRIANA MCKEON Date: 2021-10-10 09:13 [facility] Summary Purpose Family History No Family History Records FoundNo Family History Records Found Advance Directives No Advanced Directives Records FoundNo Advanced Directives Records Found Additional Source Comments INFORMATION SOURCE (unrecogn ized section and content) DATE CREATED AUTHOR 12/01/2017 Linda Nava [facility] DATE CREATED AUTHOR AUTHOR'S CHERELLE ATION 06/13/2022 [facility] FOR RECORDS PERTAINING TO PATIENTS WHO ARE OR HAVE BEEN ENROLLED IN A CHEMICAL DEPENDENCY/SUBSTANCEABUSE PROGRAM, SOME INFORMATION MAY BE OMITTED. This clinical summary was aggregated from multiple sources. Caution should be exercised in using it in the provision of clinical care. This summary normalizes information from multiple sources, and as a consequence, information in this document may materially change the coding, format and clinical context of patient data. In addition, data may be omitted in some cases. CLINICAL DECISIONS SHOULD BE BASED ON THE PRIMARY CLINICAL RECORDS. [employer] provides no warranty or guarantee of the accuracy or completeness of information in this document.
[2024-04-23 09:39] LABS: Basophils Percent Auto 0.4 % (0.2-2.0); Eosinophils Absolute Auto 0.1 10^3/uL (0.0-0.7); Eosinophils Percent Auto 1.3 % (0.9-7.0); Hematocrit 41.2 % (36.0-48.0); Immature Granulocytes Abs Auto 0.02 10^3/uL (0.00-0.03); Immature Granulocytes Pct Auto 0.3 % (0.0-0.5); Lymphocytes Absolute Auto 2.2 10^3/uL (1.2-3.8); Lymphocytes Percent Auto 32.7 % (20.5-60.0); Mean Corpuscular HGB Conc 31.6 g/dL (29.9-35.2); Mean Corpuscular Hemoglobin 28.2 pg (26.7-34.0); Mean Corpuscular Volume 89.4 fL (81.0-99.0); Mean Platelet Volume 9.6 fL (9.5-13.5); Monocytes Absolute Auto 0.6 10^3/uL (0.3-0.8); Monocytes Percent Auto 8.5 % (1.7-12.0); Neutrophils Absolute Auto 3.9 10^3/uL (1.4-6.5); Neutrophils Percent Auto 56.8 % (43.0-75.0); Platelet Count 333 10^3/uL (150-450); Red Blood Count 4.61 10^6/uL (4.20-5.40); Red Cell Distribution Width 12.9 % (11.0-15.0); White Blood Count 6.9 10^3/uL (4.0-11.0)
[2024-04-23 10:04] LABS: Estimated Average Glucose 108 mg/dL; Glycohemoglobin A1C 5.4 % (4.5-6.2)
[2024-04-23 10:15] LABS: Alanine Aminotransferase 29 U/L (14-59); Albumin Globulin Ratio 0.8; Alkaline Phosphatase 87 U/L (46-116); Anion Gap 15.2; Aspartate Amino Transferase 14 U/L (15-37); BUN Creatinine Ratio 11.8; Bilirubin Total 0.4 mg/dL (0.2-1.0); Calcium 8.8 mg/dL (8.5-10.1); Carbon Dioxide 26.3 mmol/L (21.0-32.0); Chloride 107 mmol/L (98-107); Chol HDL Ratio 1.9; Cholesterol 158 mg/dL (<=200); Estimated GFR (African America >60 (>=60 mL/min/1.73m^2); Estimated GFR (Non-African Ame >60 (>=60 mL/min/1.73m^2); Free T3 1.83 pg/mL (2.18-3.98); Globulin 3.7 g/dL; Glucose 103 mg/dL (74-106); HDL Cholesterol 83 mg/dL (40-60); Potassium 4.5 mmol/L (3.5-5.1); Sodium 144 mmol/L (136-145); Thyroid Stimulating Hormone 1.432 uIU/mL (0.358-3.740); Total Protein 6.7 g/dL (6.4-8.2); Triglycerides 61 mg/dL (<=150); VLDL CHOLESTEROL 12.2 mg/dL
[2024-04-25 13:09] LABS: Insulin 7.5 uIU/mL (2.6-24.9)
== END 2024-04-23 08:18 | disposition home or self-care (01) ==
PROVIDERS: PCP Nurse Practitioner Family; Visit Provider Nurse Practitioner Family
DX: Z00.00 Encounter for general adult medical examination without abnormal findings (principal)
CPT/HCPCS: 36415; 80053; 80061; 83036; 83525; 83540; 84436; 84443; 84481; 85025

== ENCOUNTER 2025-06-07 07:31 | Outpatient (OUT) | payer BC, SELFPAY ==
--- OUTSIDE RECORDS SUMMARY | 2014-12-21 03:30 | XMS_ITS | Continuity of Care Document ---
Author Organization [facility] Address [address] [place] [address] [place] [address] Phone Care Team Providers Care Intelligence Specialist Name Role Phone Unavailable Unavailable Unavailable Procedures Procedure Date OFFICE/OUTPATIENT VISIT, [facility] Advance Directives Directive Yes / No Effective Date File Name No Information Encounters Encounter Description Practice Location Reason(s) For Visit Diagnoses Date Provider Encounter Disposition OFFICE/OUTPAT IENT VISIT, [facility], [address] [place], [place] [address] [place], [place], [id number], [place] tel:[phone] [facility] No Information 9-201 5 No [facility], [address] [place] [address], [place], [place], [id number], [place] tel:[phone] [facility] No Information 4-201 4 No [facility], [address] [place] [address] [place], [place], [id number], [place] tel:[phone] [facility] No Information 1-201 4 No [facility], [address] [place] [address] [place], [place], [id number], [place] tel:[phone] [facility] No Information 8-201 4 No [facility], [address] [place], [place] [address] [place], [place], [id number], [place] tel:[phone] [facility] IP No Information 0 2-201 4 No [facility], [address] [place], [place] [address] [place], [place], [id number], [place] tel:[phone] [facility] IP No Information 4 Ayden Alvarez. [address], [place], [place], [id number], [place]. tel:[phone] [facility], [address] [place] [address] [address], [place], [place], [id number], tel:[phone] [facility] No Information 4 Ayden Alvarez. [address] [facility] [address], [place], [place], [id number], [place]. tel:[phone] [place] [facility], [address] [place] [address] [address], [place], [place], [id number], [place] tel:[phone] [facility] No Information 4 Ayden Alvarez. [address], [place], [place], [id number], [place]. tel:[phone] Family History Family Member Type Diagnosis Age At Onset No Information Payers Payer name Insurance type Identifiers Authorization(s) Com etta Pereira CI r ID: [id number] Name: Coverage Status Eligibility Check on: [id number] ip to Subscriber: selfPayer Address: [facility] [id number], [place], [place], [id number], [facility] Phone: [phone] Social History Type Description Quantity Date Captured Comments Sex Female Smoking Status No Information Current Gender Female (finding) Chief Complaint And Reason For Visit No Information History Of Present Illness Encounter Date Complaint History Of Prese nt Illness No Information Functional Status Date Description Comments No Information Instructions Date Instruction Additional Infor mation No Information Assessments Type Assessment Date No Information
--- OUTSIDE RECORDS SUMMARY | 2025-06-06 03:30 | XMS_ITS ---
Author Organization The [facility] in [place] Address [address] [place] [address] Care Team Providers Care Registry Np Name Role Phone Lata Medina Primary Care Provider Allergies Allergen (clinical drug ingredient) Drug/Non Drug Allergy documented on EMR Reaction Allergy Type Onset Date Status Non-steroidal anti-inflammat ory agent (FN) NSAIDs cant have b/c of gastric bypass Drug Allergy Active REASON FOR VISIT annual wellness Medications Medication SIG (Take, Route, Frequency, Duration) Notes Start Date End Date Status Tylenol 325 MG 1 tablet as needed Orally every 4 hrs ActiveThiamineActiveMultivitamin -2 tablets Orally Once a dayActiveMetoprolol Tartrate 25 MG1 tablet with food Orally Twice a day; Duration: 90 daysActive Methocarbamol 750 MG1 tablet Orally BID prn; Duration: 7 days01/14/2024ctive Dextromethorphan HBr 15 MG2 capsules as needed Orally every 8 hrs; Duration: 7 days5ActiveCPAP Supplies Mask and Tubing; Duration: 90 days DX: G47.33 01/14/2024ctiveIronActiveEstradiol 1 MG1 tablet Orally Once a day; Duration: 90 daysActivemetFORMIN HCl 500 MG1 tablet with a meal Orally BID; Duration: 90 days ActiveWegovy 0.25 MG/0.5ML0.5 mL Subcutaneous weekly; Duration: 28 dayscall for next dose01/14/2024Not-TakingtraMADol HCl 50 MG1 tablet as needed Orally daily; Duration: 7 days5ActiveVitamin DActiveCalcium 500 MG1 tablet with meals Orally DailyActiveVitamin C 1000 MG1 tablet Orally Once a dayActive Social History Tobacco Use: Social History Observation Description Date Details (start date - stop date) Former Smoker 06/15/1990 - 07/16/2009 Tobacco Use/Smoking Question Answer Notes Patient is a former smoker When did you start smoking?06/15/1990When did you stop smoking?07/16/2009How long has it been since you last smoked?> 10 yearsAUDIT-C (Standard) Question Answer Notes Did you have a drink containing alcohol in the p ast year? No Tglgmh1AlfvmdgxfojkekPcocjain Problems Problem Type SNOMED Code ICD Code Onset Dates Problem Status W/U Status Risk Notes Problem Obese class III (finding) (748129405) Cla ss 3 obesity (E66.01) Activeconfirmed Vital Signs Weight 246.6 lbs 06/06/2025 Height 64 in 06/06/2025 Blood pressure systolic 116 mm Hg 06/06/20 25 Blood pressure diastolic 68 mm Hg 025 BMI 42.32 kg/m2 06/06/2025 Encounters Encounter Location Date Provider Diagnosis [facility] [address] [place] [address] 06/06/2025 Lata Medina Wellness examination Z00.00 ; Class 3 obesity E66.01 and Hip pain M25.559 Assessments Encounter Date Diagnosis (ICD Code) Assessment Notes Treatment Notes Treatment Clinical Notes Section Notes 06/06/2025 Wellness examination (ICD-10 - Z 00.00) ROS done exam done encouraged mammogram colonoscopy due 202706/06/2025lass 3 obesity (ICD-10 - E66.01) semaglutide sent to [facility] for wt check 06/06/2025Hip pain (ICD-10 - M25.559) CSA signed OARRS reviewed requesting prn tramadol for nights cant sleep due to pain Plan Of Treatment Medication Medication Name Sig Start Date Stop Date Notes traMADol HCl 50 MG 1 tablet as needed Orally daily; Du ration: 7 days 06/06/2025 Treatment Notes Assessment Notes Wellness examination ROS done exam done encouraged mammogram colonoscopy due 2027 Class 3 obesity semaglutide sent to [facility] for wt check Hip pain CSA signed OARRS reviewed requesting prn tramadol for nights cant sleep due to pain Pending Test Test Name Order Date HEMOGLOBIN A1C (GLYCO) 06/06/2025 IRON, TOTAL 06/06/2025 LIPID PANEL (CHOL/TRIG/HDL/LDL) 06/06/20 25 VITAMIN D, 25 LEVEL (TOTAL) 06/06/2025 Insulin Level 06/06/2025 THYROID PANEL (T4/TSH/FREE T3) 5 CMP (COMP MET RIBERA) w/eGFR CKD-EPI 2024 CBC WITH DIFF 06/06/2025 Next Appt Details Follow Up: 6 Months,prn, Gemma son: Progress Notes * Leslie DURHAMDOB:1969 (55 yo F)Acc No.[id number]:06/06/2025 UNLOCKED PROGRESS NOTE Progress Note Patient: Leslie CHOI :?Lata Medina ([facility]), CNPDOB:1970 ???Age:55 Y???Sex:FemaleDate:06/06/2025Phone:[phone]:[address], [place], [place]Rtzqx In:08:22 AM ESTCheck Out:09:04 AM EST Subjective: * Chief Complaints: * 1 . Annual wellness. * HPI: ???General:? weight concerns hip pain had left replaced, now right is hurting bad has cpap not wearing right now swelling in LE no specialists. * ROS: ???General/Constitutional:?Patient complaining of?unable to lose wt.?Fever?d enies.?Headache?denies.?Weight loss?denies.?Ophthalmologic:?Discharge?denies.?Eye Pain?denies.?Itching and redness?denies.?ENT:?Nasal discharge?denies.?Nasal congestion?denies. Sore throat?denies.?Cardiovascular:?Chest tightness/ heavy pressure?denies.?Rapid heart rate?denies.?Swelling of extremities?admits.?Chest pain?denies.?Respiratory:?Productive cough?denies.?Chest pain?denies.?Cough?denies.?Shortness of breath?denies.?Wheezing?denies.?Gastrointestinal:?Abdominal pain?denies.?Constipation?denies.?Decreased appetite?denies.?Diarrhea?denies.?Nausea?denies.?Vomiting denies.?Genitourinary:?Urinary incontinence?denies.?Painful urination?denies.?Musculoskeletal:?Joint pain?bilateral hip pain.?Back pain?denies. Neck pain?denies.?Muscle aches?denies.?Skin:?Rash?denies.?Skin lesion(s)?denies.? * Medical History: M edical History Verified. * Surgical History: g astric bypass 2013, tonsills , D&C , total hysterectomy , abdominal surgeries , appendix , rectocele repair , left hip replacement , bilateral foot surgery , left calf surgery , Colonoscopy/EGD- [facility] 2017. * Family History: F ather: , diagnosed with Heart Disease. M other: , LUNG CANCER, thyroid disease. * Social History: ???Tobacco Use:?Tobacco Use/Smoking?Patient is a?former smoker ?When did you start smoking??06/15/1990 ?When did you stop smoking??07/16/2009 ?How long has it been since you last smoked? > 10 years ???Drug/Alcohol:?AUDIT-C (Standard)?Did you have a drink containing alcohol in the past year??No ?Points?0 ?Interpretation?Negative * Medications: T aking Calcium 500 MG Tablet 1 tablet with meals Orally Daily , Taking CPAP Supplies Mask and Tubing DX: G47.33, Taking Dextromethorphan HBr 15 MG Capsule 2 capsules as needed Orally every 8 hrs , Taking Estradiol 1 MG Tablet 1 tablet Orally Once a day , Taking Iron , Taking metFORMIN HCl 500 MG Tablet 1 tablet with a meal Orally BID , Taking Methocarbamol 750 MG Tablet 1 tablet Orally BID prn , Taking Metoprolol Tartrate 25 MG Tablet 1 tablet with food Orally Twice a day , Taking Multivitamin(Multiple Vitamin) - Tablet 2 tablets Orally Once a day , Taking Thiamine , Taking Tylenol(Acetaminophen) 325 MG Tablet 1 tablet as needed Orally every 4 hrs , Taking Vitamin C 1000 MG Tablet 1 tablet Orally Once a day , Taking Vitamin D , Not-Taking/PRN Wegovy(Semaglutide-Weight Management) 0.25 MG/0.5ML Solution Auto-injector 0.5 mL Subcutaneous weekly , Notes to Pharmacist: call for next dose, Medication List reviewed and reconciled with the patient * Allergies: N SAIDs: cant have b/c of gastric bypass. Objective: * Vitals: W t:246.6lbs, Ht: 64 in, BP:116/68mm Hg, BMI:42.32Index, Ht-cm: 162.56 cm, Wt-k.86 kg. * Examination: ???General Examinations: ?GENERAL APPEARANCE:?alert and oriented, in no acute distress, morbidly obese.?EYES:?conjunctiva normal, sclera non-icteric.?NOSE:?normal external appearance.?LUNGS:?clear to auscultation bilaterally.?CARDIO:?regular rate and rhythm, S1, S2 normal, non pitting edema BL LE.?ABDOMEN:?soft, nontender.?MUSCULOSKELETAL:?Gait and station normal.?SKIN:?warm and dry.? Assessment: * Assessment: 1.?Wellness examination - Z00.00 (Primary)???2.?Class 3 obesity - E66.01&#1 60;??3.?Hip pain - M25.559??? Plan: * Treatment: ?LAB: HEMOGLOBIN A1C (GLYCO) ?LAB: IRON, TOTAL ?LAB: LIPID PANEL (CHOL/TRIG/HDL/LDL) ?LAB: VITAMIN D, 25 LEVEL (TOTAL) ?LAB: Insulin Level ?LAB: THYROID PANEL (T4/TSH/FREE T3) ?LAB: CMP (COMP MET RIBERA) w/eGFR CKD-EPI ?LAB: CBC WITH DIFF Notes: ROS done exam done encouraged mammogram colonoscopy due 2027??2.?Class 3 obesity? Notes: semaglutide sent to [facility] on diet fu for wt check ??3.?Hip pain? Start traMADol HCl Tablet, 50 MG, 1 tablet as needed, Orally, daily, 7 days, 7 Tablet, Refills 0. ? Notes: CSA signed OARRS reviewed requesting prn tramadol for nights cant sleep due to pain ?? * Preventive Medicine: ??Screenings/Counseling:?BMI ACTION PLAN?Above Normal BMI Follow-up?Dietary management education, guidance, and counseling * Follow Up: 6 Months,prn * * Electronic signature of Lata Medina NP, ADMINISTRATIVE ASSISTANT.EMPLOYEE HEALTH RN.[id number] on 06/07/2025 at 07:37 AM ESTSign off status: PendingVisit Status:?CHK (Check Out) * Provider: Leisa Medina ([facility]), EMPLOYEE HEALTH RN Date: 08/07/2024 Generated for Printing/Faxing/eTransmitting on:?06/07/2025 07:37 AM EST History and Physical Notes * HPI (History of Present Illness) CategorySub-CategoryDetailNotesCategory NotesGeneral weight concerns hip pain had left replaced, now right is hurting bad has cpap not wearing right now swelling in LE no specialists Examination CategorySub-CategoryDetailNotesCategory NotesGeneral ExaminationsGENERAL APPEARANCE:alert and oriented, in no acute distress, morbidly obeseEYES: conjunctiva normal, sclera non-ictericEARS:NOSE:normal external appearance THROAT:CARDIO:regular rate and rhythm, S1, S2 normal, non pitting edema BL LE LUNGS:clear to auscultation bilaterallyABDOMEN:soft, nontenderSKIN:warm and dry BACK:MUSCULOSKELETAL:Gait and station normalLYMPH NODES:
--- OUTSIDE RECORDS SUMMARY | 2025-06-06 04:25 | XMS_ITS ---
Author Organization [facility] in [place] Address [address] [place] [address] Care Team Providers Care Display Fabricator Name Role Phone Lata Medina Primary Care Provider Medications Medication SIG (Take, Route, Frequency, Duration) Notes Start Date End Date Status Metoprolol Tartrate 25 MG 1 tablet with food Orally Twice a day; Duration: 90 days ActivemetFORMIN HCl 500 MG1 tablet with a meal Orally BID; Duration: 90 days ActiveEstradiol 1 MG1 tablet Orally Once a day; Duration: 90 daysActive Encounters Encounter Location Date Provider Diagnosis [address] [address] 06/06/2025 Lata Medina Plan Of Treatment Medication Medication Name Sig Start Date Stop Date Notes Metoprolol Tartrate 25 MG 1 tablet with food Orally Twice a day; Duration: 90 days metFORMIN HCl 500 MG1 tablet with a meal Orally BID; Duration: 90 daysEstradiol 1 MG1 tablet Orally Once a day; Duration: 90 days Progress Notes * Gabrielle DURHAMshruthiDOB:1969 (55 yo F)Acc No.[id number]:06/06/2025 Patient:?Leslie DURHAM :1970???Age:55 Y???Sex:FemalePhone:[phone] Address:[address] [place] [address] * Refills Refill Estradiol Tablet, 1 MG, Orally, 90 Tablet, 1 tablet, Once a day, 90 days, Refills=3 Refill metFORMIN HCl Tablet, 500 MG, Orally, 180 Tablet, 1 tablet with a meal, BID, 90 days, Refills=3 Refill Metoprolol Tartrate Tablet, 25 MG, Orally, 180 Tablet, 1 tablet with food, Twice a day, 90 days, Refills=3 Subjective: * Chief Complaints: * * Medical History: * Surgical History: * Hospitalization/Major Diagno stic Procedure: * Medications: Objective: * Vitals: * Physical Examination: ??? Assessment: Plan: * Treatment: Refill Estradiol Tablet, 1 MG, 1 tablet, Orally, Once a day, 90 days, 90 Tablet, Refills 3;?Refill metFORMIN HCl Tablet, 500 MG, 1 tablet with a meal, Orally, BID, 90 days, 180 Tablet, Refills 3;?Refill Metoprolol Tartrate Tablet, 25 MG, 1 tablet with food, Orally, Twice a day, 90 days, 180 Tablet, Refills 3.?? * Procedure Codes: * true * Date:?Generated for Printing/Faxing/eTransmitting on:?06/07/2025 07:36 AM EST
--- OUTSIDE RECORDS SUMMARY | 2025-06-07 07:36 | XMS_ITS | Clinical Summary ---
Author Organization [facility] Address [address] [place] [address] Care Team Providers Care Lambskin Trimmer Name Role Phone Unavailable Primary Care Provider Unavailabl e Social History Tobacco UseTypesPacks/DayYears UsedDateSmoking Tobacco: Never Assessed CommentsUnknownSex and Gender InformationValueDate RecordedSex Assigned at Not on fileLegal PmgWujloi72/15/2023 7:26 PM EDTGender IdentityNot on fileSexual OrientationNot on file Last Filed Vital Signs Vital SignReadingTime TakenCommentsBlood Ifdyespg202/7205/27/2022 12:00 PM EST Pulse--Temperature--Respiratory Rate--Oxygen Saturation--Inhaled Oxygen Concentration--Gcobee828 kg (264 lb)05/27/2022 12:00 PM CQUFqklna265.6 cm (5' 4 )05/27/2022 12:00 PM ESTBody Mass Index45.32107/28/2021 12:00 PM EST Plan of Treatment Not on file
--- OUTSIDE RECORDS SUMMARY | 2025-06-07 07:37 | XMS_ITS | Clinical Summary ---
Author Organization [facility] Address [address], [address] [place] [address] Care Team Providers Care Flower Grower Name Role Phone Geovani Billingsley DO, Charles P Primary Care Provider + Allergies Active AllergyReactionsCriticalityNoted AnjtIqbakbvkAnfgitpzikimr47/07/2019 Jwlqeu3804/21/2019 Not able to take due to gastric bypass surgery Medications MedicationSigDispense QuantityRefillsLast FilledStart DateEnd DateStatus estradiol (ESTRACE) 1 MG tablet TAKE 1 TABLET BY MOUTH EVERY JTA468Active metoprolol tartrate (LOPRESSOR) 25 MG tablet Take 12.5 mg by mouth 2 times lexni112Active metFORMIN (GLUCOPHAGE) 500 MG tablet TAKE 1 TABLET BY MOUTH TWICE A MTX804Active Ascorbic Acid (VITAMIN C) 250 MG tablet Take 1,000 mg by mouth dailyActive Multiple Vitamin (MULTIVITAMINS PO) Take by mouth 2 times daily09/01/2008ctive vitamin B-1 (THIAMINE) 100 MG tablet Take 100 mg by mouth dailyActive Calcium Carb-Cholecalciferol (CALCIUM-VITAMIN D) 500-200 MG-UNIT per tablet Take 1 tablet by mouth 3 times daily (with meals)Active acetaminophen (TYLENOL) 500 MG tablet Take 1,000 mg by mouth every 6 hours as needed for PainActive Nutritional Supplements (COLD AND FLU PO) Take by mouth as neededActive Active Problems No known active problems Family History Medical HistoryRelationNameCommentsDiabetesBrother 2DiabetesFatherHeart Disease FatherKidney DiseaseMaternal GrandfatherDiabetesMaternal GrandmotherLung Cancer MotherDiabetesPaternal GrandmotherRelationNameStatusCommentsBrother 1Alive Brother 2FatherAliveMaternal GrandfatherMaternal GrandmotherMotherDeceased Paternal GrandmotherSister 1AliveSister 2AliveSister 3Alive Social History Tobacco UseTypesPacks/DayYears UsedDateSmoking Tobacco: FormerCigarettesQuit: 03/10/2010Smokeless Tobacco: Never Tobacco Cessation:Counseling Given: Yes Alcohol UseStandard Drinks/WeekCommentsNo0 (1 standard drink = 0.6 oz pure alcohol)CommentsNoSex and Gender InformationValueDate RecordedSex Assigned at BirthNot on fileLegal EbuMuxala62/10/2013 1:24 PM ESTGender Identity Not on fileSexual OrientationNot on file Last Filed Vital Signs Vital SignReadingTime TakenCommentsBlood Mbnajuzi464/6204/21/2019 5:00 PM EST Jcfyq686404/21/2019 5:00 PM KVMUshjiqcjiur80.2 ??C (97.2 ??F)04/21/2019 5:00 PM ESTRespiratory Pnht273606/21/2018 5:00 PM ESTOxygen Yqeprfvwny45%04/21/2019 5:00 PM ESTInhaled Oxygen Concentration--Iccgxv474 kg (236 lb)04/21/2019 5:00 PM EST Qqowxr534.3 cm (5' 3.5 )04/21/2019 5:00 PM ESTBody Mass Index41.15106/21/2018 5:00 PM EST Plan of Treatment Not on file Insurance [address] [place] [address] Care Teams Team MemberRelationshipSpecialtyStart DateEnd Roni Olivo Sr., DO [address] [place] [address] PCP - GeneralFamily Liiosqpw58/3/17
--- OUTSIDE RECORDS SUMMARY | 2025-06-07 07:37 | XMS_ITS | Clinical Summary ---
Author Organization [facility] Address [id number] [address] [place] [address] Care Team Providers Care Welder Shielded Metal Arc Name Role Phone Rnoi lOivo DO Primary Care Provider [phone] Social History Tobacco UseTypesPacks/DayYears UsedDateSmoking Tobacco: Never AssessedChildcare AnswerDate NjqsxnvkLjchhqbtzUonudto88/05/2019EmploymentAnswerDate Recorded CitpgrmvwcVgsbnqd81/05/2019Purpose - LifeAnswerDate RecordedPurpose and direction in fskiFbxwzoy08/11/2021CommentsUnknownSex and Gender InformationValueDate RecordedSex Assigned at BirthNot on fileLegal SexFemale 01/18/2015 12:06 PM EDTGender IdentityNot on fileSexual OrientationNot on file Plan of Treatment Health MaintenanceDue DateLast DoneCommentsDepression Hrhjivena49/09/1982Tobacco Dstuziezd30/09/1982Adult BMI Rnduktatl05/09/1988DTaP,Tdap and Td Vaccines (1 - Tdap)1989Pap Smear1991Zoster (Shingles) Vaccine (1 of 2)01/22/2020 Influenza Uqxssuv5802/13/2025 Medical Devices Not on file Insurance Care Teams Team MemberRelationshipSpecialtyStart DateEnd Date Roni Olivo DO PCP - GeneralFamily Medicine11/17/18
--- OUTSIDE RECORDS SUMMARY | 2025-06-07 07:37 | XMS_ITS | Patient Health Record ---
Author Organization [facility] [place] Address [address] [place] [address] Care Team Providers Care Is Technician Name Role Phone Lata Medina Primary Care Provider [phone] Allergies Allergen (clinical drug ingredient) Drug/Non Drug Allergy documented on EMR Reaction Allergy Type Onset Date Status Non-steroidal anti-inflammat ory agent (FN) NSAIDs cant have b/c of gastric bypass Drug Allergy Active Results Component Value Reference Range Notes COVID-19, Flu A+B IH (Not ye t reviewed by provider) Interpretation: Performing Lab: Notes/Report: COVID neg FLU AnegFLU BnegControlpresent Reason For Referral No Information Medications Medication SIG (Take, Route, Frequency, Duration) Notes Start Date End Date Status Metoprolol Tartrate 25 MG 1 tablet with food Orally Twice a day; Duration: 90 days ActiveDextromethorphan HBr 15 MG2 capsules as needed Orally every 8 hrs; Duration: 7 days5ActiveWegovy 0.25 MG/0.5ML0.5 mL Subcutaneous weekly; Duration: 28 dayscall for next dose01/14/2024Not-TakingtraMADol HCl 50 MG1 tablet as needed Orally daily; Duration: 7 days5ActiveCPAP Supplies Mask and Tubing; Duration: 90 days DX: G47.33 4ActiveVitamin DActiveCalcium 500 MG1 tablet with meals Orally Daily ActiveVitamin C 1000 MG1 tablet Orally Once a dayActiveTylenol 325 MG1 tablet as needed Orally every 4 hrsActiveIronActivemetFORMIN HCl 500 MG1 tablet with a meal Orally BID; Duration: 90 daysActiveThiamineActiveMultivitamin -2 tablets Orally Once a dayActiveMethocarbamol 750 MG1 tablet Orally BID prn; Duration: 7 days01/14/2024ctiveEstradiol 1 MG1 tablet Orally Once a day; Duration: 90 days Active Social History Tobacco Use: Social History Observation Description Date Details (start date - stop date) Former Smoker 06/15/1990 - 07/16/2009 Tobacco Use/Smoking Question Answer Notes Patient is a former smoker When did you start smoking?06/15/1990When did you stop smoking?07/16/2009How long has it been since you last smoked?> 10 yearsAlcohol Screen (Audit-C) Question Answer Notes Did you have a drink containing alcohol in the p ast year? Yes How often did you have 6 or more drinks on one occasion in the past year?Never (0 point)How many drinks did you have on a typical day when you were drinking in the past year?1 or 2 drinks (0 point)How often did you have a drink containing alcohol in the past year?Weekly (3 points)Tljpdz1EjpkwmmcswipdiFplexkwbAUVZV-U (Standard) Question Answer Notes Did you have a drink containing alcohol in the p ast year? No Aymlvj4KqptxopjrjliymBgwlffqi Problems Problem Type SNOMED Code ICD Code Onset Dates Problem Status W/U Status Risk Notes Problem Obstructive sleep ap nathan syndrome (17751334) MARILIA (obstructive sleep apnea) (G47.33) ActiveconfirmedProblemMultiple premature ventricular complexes (disorder) (319266459)PVCs (premature ventricular contractions) (I49.3)Activeconfirmed ProblemObese class III (finding) (511428116)Class 3 obesity (E66.01)Active confirmed Vital Signs Heart Rate 68 /min 08/08/2024 Uorebnkehjr11.2 degrees Hqiouxvdya20/24/4346Pvfxfvtn72 %08/08/2024lood pressure ogatqgmil61 mm Hg06/06/20259613Hdqlht35 in06/06/2025lood pressure xoynwmly982 mm Hg 06/06/20252549Afczij288.6 lbs108/07/2024BMI42.32 kg/m206/06/2025 Encounters Encounter Location Date Provider Diagnosis [facility] [address] [place] [address] 06/06/2025 Lata Medina Wellness examination Z00.00 ; Class 3 obesity E66.01 and Hip pain M25.559 [facility] [address] [place] [address] 08/08/2024 Lata Medina Cough R05.9 ; Body aches R52 ; Diarrhea R19.7 and URI (upper respiratory infection) J06.9 [facility] [address] [place] [address] 06/06/2025 Lata Medina [facility] [place] [address] 06/06/2025Lata Medina Assessments Encounter Date Diagnosis (ICD Code) Assessment Notes Treatment Notes Treatment Clinical Notes Section Notes 08/08/2024 Cough (ICD-10 - R05.9) fu if ahvlkb0208/08/2024ody aches (ICD-10 - R52)06/06/2025Wellness examination (ICD-10 - Z00.00) ROS done exam done encouraged mammogram colonoscopy due 202706/06/2025lass 3 obesity (ICD-10 - E66.01) semaglutide sent to [facility] on diet fu 3m for wt check 06/06/2025Hip pain (ICD-10 - M25.559) CSA signed OARRS reviewed requesting prn tramadol for nights cant sleep due to pain 08/08/2024Diarrhea (ICD-10 - R19.7)08/08/2024URI (upper respiratory infection) (ICD-10 - J06.9) Plan Of Treatment Pending Test Test Name Order Date CMP (COMPLETE METABOLIC PANEL) 3 CMP (COMPLETE METABOLIC PANEL) 4 CULTURE, STOOL 08/08/2024 HEMOGLOBIN A1C (GLYCO) 04/17/2023 HEMOGLOBIN A1C (GLYCO) 06/06/2025 HEMOGLOBIN A1C (GLYCO) 04/21/2024 INSULIN, TOTAL 04/21/2024 IRON, TOTAL 06/06/2025 IRON, TOTAL 04/17/2023 LIPID PANEL (CHOL/TRIG/HDL/LDL) 06/06/20 25 LIPID PANEL (CHOL/TRIG/HDL/LDL) 04/17/20 23 LIPID PANEL (CHOL/TRIG/HDL/LDL) 04/21/20 24 CBC WITH DIFF (EXP 04/2025) 04/21/2024 CBC WITH DIFF (EXP 04/2025) 04/17/2023 VITAMIN D, 25 LEVEL (TOTAL) 06/06/2025 VITAMIN D, 25 LEVEL (TOTAL) 04/17/2023 Insulin Level 06/06/2025 Insulin Level 04/17/2023 C DIFF TOX PCR STOOL 08/08/2024 COVID-19, Flu A+B IH 08/08/2024 THYROID PANEL (T4/TSH/FREE T3) 4 THYROID PANEL (T4/TSH/FREE T3) 4 THYROID PANEL (T4/TSH/FREE T3) 3 THYROID PANEL (T4/TSH/FREE T3) 5 XR chest 2V 08/08/2024 CA holter montior 2-7 days 04/17/2023 CMP (COMP MET RIBERA) w/eGFR CKD-EPI 2024 CBC WITH DIFF 06/06/2025 Insurance Providers Payer Name Payer Address Payer Phone Subscriber Number Group Number Insured Name Patient Relationship to Insured Coverage Start Date Coverage End Date [employer] [address] [place] [address] [id number] Didi Durhamelf - patient is the insuredANTHEM TRADITIONALPO [address] [place] [id number], AntoinetteSelf - patient is the insured Medical (General) History Surgical History Surgery Date(Month/Year) total hysterectomy abdominal surgeriesappendixrectocele repairleft calf surgeryColonoscopy/EGD- [facility] 2018left hip replacementbilateral foot surgerygastric apgsmb0128junwitysG&C
[2025-06-07 08:05] LABS: Hematocrit 40.3 % (36.0-48.0); Hemoglobin 12.6 g/dL (12.0-16.0); Immature Granulocytes Abs Auto 0.01 10^3/uL (0.00-0.03); Immature Granulocytes Pct Auto 0.2 % (0.0-0.5); Lymphocytes Absolute Auto 2.5 10^3/uL (1.2-3.8); Mean Corpuscular HGB Conc 31.3 g/dL (29.9-35.2); Mean Corpuscular Hemoglobin 27.6 pg (26.7-34.0); Mean Corpuscular Volume 88.2 fL (81.0-99.0); Platelet Count 344 10^3/uL (150-450); Red Blood Count 4.57 10^6/uL (4.20-5.40); White Blood Count 6.4 10^3/uL (4.0-11.0)
[2025-06-07 08:36] LABS: Alanine Aminotransferase 32 U/L (14-59); Albumin Globulin Ratio 0.8; Albumin Level 3.0 g/dL (3.4-5.0); Alkaline Phosphatase 96 U/L (46-116); Anion Gap 11.6; Aspartate Amino Transferase 17 U/L (15-37); Blood Urea Nitrogen 8.0 mg/dL (7.0-18.0); Calcium 9.1 mg/dL (8.5-10.1); Carbon Dioxide 29.4 mmol/L (21.0-32.0); Chloride 107 mmol/L (98-107); Cholesterol 176 mg/dL (<=200); Estimated GFR (African America >60 (>=60 mL/min/1.73m^2); Estimated GFR (Non-African Ame >60 (>=60 mL/min/1.73m^2); Free T3 1.99 pg/mL (2.18-3.98); Globulin 3.9 g/dL; Glucose 107 mg/dL (74-106); HDL Cholesterol 76 mg/dL (40-60); Potassium 4.0 mmol/L (3.5-5.1); Sodium 144 mmol/L (136-145); Thyroid Stimulating Hormone 2.163 uIU/mL (0.358-3.740); Total Protein 6.9 g/dL (6.4-8.2); Triglycerides 65 mg/dL (<=150); VLDL CHOLESTEROL 13.0 mg/dL
[2025-06-07 08:50] LABS: Iron 126.0 ug/dL (50.0-170.0)
== END 2025-06-07 07:32 | disposition home or self-care (01) ==
PROVIDERS: PCP Nurse Practitioner Family; Visit Provider Nurse Practitioner Family
DX: Z00.00 Encounter for general adult medical examination without abnormal findings (principal)
CPT/HCPCS: 36415; 80053; 80061; 82306; 83036; 83525; 83540; 84436; 84443; 84481; 85025